=== PATIENT | female | born 2000 | race Caucasian/White ===

== ENCOUNTER 2019-05-14 06:39 | Emergency (ER) | payer OTHER ==
[~2019-05-14] VITALS: Ht 170.2 cm; Wt 60.0 kg
[2019-05-14] MEDS ORDERED: penicillin G benzathine 1.2 million unit/2ml syringe IM ONE (08:15)
[2019-05-14] MEDS ORDERED: ibuprofen tablet 400 MG TABLET PO ONE (08:20)
[2019-05-14 08:23] VITALS: BP 125/81
[2019-05-14] MEDS ORDERED: ibuprofen 200mg tablet PO ONE (08:25)
== END 2019-05-14 08:50 | disposition home or self-care (01) ==
LOC: ER 06:39
DX: J02.0 Streptococcal pharyngitis (principal); B95.0 Streptococcus, group A, as the cause of diseases classified elsewhere
CPT/HCPCS: 87880; 96372; 99283; J0561